=== PATIENT | male | born 1980 | race Caucasian/White ===

== ENCOUNTER 2022-03-22 22:01 | Emergency (ER) | payer OTHER, SELFPAY ==
[2022-03-22 22:16] VITALS: BP 150/102; PULSE 90; RESP 16; TEMP 36.1; O2SAT 97; BMI 25.8
--- NOTE | 2022-03-22 23:46 | ED.DENTAL ---
HPI - Dental/Oral General Chief complaint: Dental/Oral Stated complaint: Lt. side bottom tooth pain Time Seen by Provider: 03/22/22 23:37 Source: patient Mode of arrival: Ambulatory History of Present Illness HPI Narrative: Patient is a healthy 41-year-old male with left lower dental pain. It started today. He has previously had severe dental infections requiring hospitalizations. He has an appointment with the dentist but not until next week. He has been taking ibuprofen without much relief. He has no facial now. Although I thing that seems to help is cold water so he is drinking ice cold water and spitting it out multiple times. He says at only works for about 30 seconds Teeth map: 1. Pain filling noted no swelling Related Data Previous Rx's Medication Instructions Recorded amoxicillin 500 mg capsule 500 mg PO BID #14 caps 03/23/22 hydrocodone 5 mg-acetaminophen 325 1 tab PO Q6H PRN pain #10 tabs 03/23/22 mg tablet Allergies Allergy/AdvReac Type Severity Reaction Status Date / Time shellfish derived Allergy Anaphylaxis Verified 03/22/22 22:16 Review of Systems Review of Systems Narrative: GENERAL: Denies chills,fever HEENT: See HPI RESPIRATORY: Denies dyspnea, cough, wheezing CARDIOVASCULAR: Denies chest pain, palpitations GASTROINTESTINAL: Denies nausea, vomiting MUSCULOSKELETAL: Denies extremity pain, injury SKIN: No rash, no laceration, no pruritus NEUROLOGIC: Denies weakness, dizziness, headache, numbness 8 point review of systems is negative except for those stated above and HPI Patient History Social History Smoking Status: Never smoker Smoking Status: Never smoker alcohol intake frequency: a few times a week Substance Use Type: does not use Exam Initial Vital Signs Initial Vital Signs: Vital Signs Temperature 97 F L 03/22/22 22:16 Pulse Rate 90 03/22/22 22:16 Respiratory Rate 16 03/22/22 22:16 Blood Pressure 150/102 H 03/22/22 22:16 Pulse Oximetry 97 03/22/22 22:16 Oxygen Delivery Method 03/22/22 22:16 GENERAL: Well-appearing, well-nourished and in no acute distress. DENTAL: No facial swelling no dental swelling no dental abscess CARDIOVASCULAR: peripheral pulses in tact, cap refill <2 sec RESPIRATORY: No respiratory distress, speaks in full sentences without difficulty EXTREMITIES: Normal range of motion, no clubbing or edema. Neurovascularly intact NEUROLOGICAL: Cranial nerves II through XII grossly intact. Normal gait and speech. SKIN: Warm, dry, no petechiae, no rashes or lesions. Procedures Nerve Block Nerve Block 1: Local Anesthetic: bupivacaine 0.5% and with epi Amount of anesthesia used (mL): 3 Side: left Intraoral Nerve Block: superior alveolar Procedure Successful: Yes Course Orders Ordered: Discontinued Medications Hydrocodone Bitart/Acetaminophen (Hydrocodone/Acet 5/325 Prepack) 1 bottle MISC SEEINSTR ONE Stop: 03/23/22 00:10 Last Admin: 03/23/22 00:12 Dose: 1 bottle Documented By: ATTILA Bupivacaine HCl/Epinephrine Bitart (Bupivacaine 0.25% W/ Epi (Pf) 10 Ml Vial) 5 ml SUBCUT NOW ONE Stop: 03/22/22 23:47 Last Admin: 03/23/22 00:11 Dose: Not Given Documented By: ATTILA Vital Signs Vital signs: Vital Signs - 8 hr 03/22/22 22:16 03/23/22 00:15 Temperature 97 F L Pulse Rate 90 81 Respiratory Rate 16 18 Blood Pressure 150/102 H 178/107 H Pulse Oximetry 97 97 Oxygen Delivery Method Room Air Room Air MDM - Dental/Oral MDM Narrative Medical decision making narrative: Patient is having a lot of dental pain. No obvious swelling. He is swishing and spitting cold water very irregularly. Attempted a dental block but did seem to work. He is given [facility] antibiotics. He has had previous I am assuming deep neck soft tissue infection Discharge Plan Departure Patient Disposition: Home Clinical Impression: Pain, dental Instructions: DI for Dental Pain Activity Restrictions/Additional Instructions: *You have been diagnosed with dental pain *What to do: Recommend he see a dentist. Monitor for worsening symptoms *Continue to take medications as directed Ibuprofen 800 mg every 8 hours if needed for [id number] [facility] 1 tablet every 6 hours if needed for severe pain Amoxicillin 500 mg twice a day for 7 days *Follow up with your primary care provider in 2-3 days or call [phone] *Return to ER if you should have increasing pain, facial swelling difficulty swallowing or any new, worsening or concerning symptoms CONTROLLED SUBSTANCE DISCHARGE (Narcotoic/benzodiazepine/Flexeril/Phenergan) 1. You have been prescribed narcotic medications, it does have acetaminophen/Tylenol/paracetamol in it, DO NOT TAKE MORE THAN 4,00mg in 24 hours of Tylenol. TRAMADOL DOES NOT CONTAIN TYLENOL 2. Please understand that we cannot provide further refills of narcotics, benzodiazepines or controlled substances through the ED and her pain management will need to be through your provider. 3. While on these medications you cannot drive or operate heavy machinery. 4. You cannot sign legal documents or perform any duties such as this. 5. As long as you're taking opiate pain medications he should also be taking a stool softener such as Colace, Dulcolax, MiraLAX or prune juice, to help avoid constipation. Prescriptions: New amoxicillin 500 mg capsule 500 mg PO BID Qty: 14 0RF hydrocodone-acetaminophen 5-325 mg tablet 1 tab PO Q6H PRN (Reason: pain) Qty: 10 0RF Visit Report Forms: Patient Portal/API
[2022-03-23] MEDS: BUPIVACAINE 0.5% W/ EPI (PF) 30 ML VIAL (00:10)
[2022-03-23] MEDS: HYDROCODONE/ACET 5/325 PREPACK 1 BOTTLE MISC (00:12)
[2022-03-23 00:15] VITALS: BP 178/107; PULSE 81; RESP 18; O2SAT 97
== END 2022-03-23 00:17 | disposition home or self-care (01) ==
PROVIDERS: Emergency Provider Emergency Medicine
DX: K08.89 Other specified disorders of teeth and supporting structures (principal)
CPT/HCPCS: 64450; 99281; 99283

== ENCOUNTER → 2023-04-22 12:26 | Outpatient (CLI) | payer OTHER, SELFPAY ==
[2023-04-22 13:30] LABS: Add Manual Diff / Slide Review NO; Basophils Absolute Auto 0 /uL (0-100); Basophils Percent Auto 0.8 % (0-2); Eosinophils Absolute Auto 100 /uL (0-450); Eosinophils Percent Auto 2.7 % (2-4); Hematocrit 41.1 % (41-53); Hemoglobin 14.1 g/dL (13.5-17.5); Lymphocytes Absolute Auto 1900 /uL (1100-4500); Lymphocytes Percent Auto 35.2 % (25-40); Mean Corpuscular HGB Conc 34.2 % (30-36); Mean Corpuscular Hemoglobin 28.5 PG (26-34); Mean Corpuscular Volume 83.2 fL (80-100); Monocytes Absolute Auto 600 /uL (0-900); Monocytes Percent Auto 11.5 % (3-14); Neutrophils Absolute Auto 2700 /uL (1500-7000); Neutrophils Percent Auto 49.8 % (50-75); Platelet Count 284 X10^3/uL (150-400); Red Blood Cell Count 4.95 X10^6/uL (4.5-5.9); Red Cell Distribution Width 12.9 % (11.6-14.8); White Blood Cell Count 5.4 X10^3/uL (4.5-11.0)
[2023-04-22 13:51] LABS: Alanine Aminotransferase 43 IU/L (<50); Albumin 4.5 g/dL (3.5-5.0); Albumin Globulin Ratio 1.6 (1.0-2.8); Alkaline Phosphatase 49 U/L (38-126); Aspartate Aminotransferase 31 IU/L (17-59); BUN Creatinine Ratio 17.8 (6-22); Bilirubin Total 0.6 mg/dL (0.2-1.3); Blood Urea Nitrogen 18 mg/dL (9-20); Carbon Dioxide 29 mmol/L (22-32); Chloride 99 mmol/L (98-107); Cholesterol 220 mg/dL (140-199); Estimated Glomerular Filt Rate > 60 mL/min (>60); Gamma Glutamyl Transpeptidase 41 U/L (15-73); Globulin 2.9 g/dL (1.7-4.1); Glucose 101 mg/dL (70-100); HDL Cholesterol 55 mg/dL (40-60); HEMOLYSIS < 15 (0-50); LDL Cholesterol Calculated 134 mg/dL (<100); Potassium 4.2 mmol/L (3.4-5.1); Sodium 137 mmol/L (137-145); Total Protein 7.4 g/dL (6.3-8.2); Triglycerides 154 mg/dL (35-150)
[2023-04-22 14:12] LABS: Thyroid Stimulating Hormone 2.99 uIU/mL (0.47-4.68)
[2023-04-22 14:14] LABS: Prostate Specific Antigen 0.692 ng/mL (0.10-4.00)
[2023-04-24 16:14] LABS: Hep C Virus Ab w/Reflex Quant NEGATIVE s/c (NEGATIVE)
== END ==
PROVIDERS: PCP Nurse Practitioner Family; Referring Provider Nurse Practitioner Family; Visit Provider Nurse Practitioner Family
DX: E78.5 Hyperlipidemia, unspecified (principal); I10 Essential (primary) hypertension; F10.10 Alcohol abuse, uncomplicated; Z12.5 Encounter for screening for malignant neoplasm of prostate; Z11.59 Encounter for screening for other viral diseases
CPT/HCPCS: 36415; 80053; 80061; 82977; 84153; 84443; 85025; 86803